=== PATIENT | male | born 1995 | race Caucasian/White ===

== ENCOUNTER 2020-09-11 23:00 | Emergency (ER) | payer SELFPAY ==
[~2020-09-11] VITALS: Ht 167.6 cm; Wt 81.8 kg
[2020-09-11] MEDS ORDERED: LIDOCAINE 1% 10 ML VIAL ID ONE (23:30)
[2020-09-12] VITALS: BP 120/70
== END 2020-09-12 00:20 | disposition home or self-care (01) ==
LOC: EMS 23:00
DX: S61.211A Laceration without foreign body of left index finger without damage to nail, initial encounter (principal); W26.0XXA Contact with knife, initial encounter; Y93.89 Activity, other specified; Y92.89 Other specified places as the place of occurrence of the external cause; Y99.8 Other external cause status
CPT/HCPCS: 12001; 99282; J3490